=== PATIENT | female | born 1950 | race Caucasian/White ===

== ENCOUNTER 2017-01-23 09:44 | Day surgery (SDC) | payer BC, OTHER ==
[~2017-01-23] VITALS: Ht 151.1 cm; Wt 52.6 kg
[~2017-01-23 09:44] MED LIST: ALEVE220 MG PO; ASMANEX HFA13 GM IH; DOXYCYCLINE HY100 MG PO; HYDROXYZINE HCL25 MG PO; KLONOPIN0.5 M1 PO; LEVOTHYROXINE50 MCG PO; PAXIL30 MG PO; PHENERGAN-CODE120 ML PO; PROAIR HFA8.5 GM IH; TRAZODONE HCL100 MG PO
[2017-01-23 11:02] VITALS: BP 129/65
[2017-01-23] MEDS ORDERED: IBUPROFEN800 MG PO (14:36)
[2017-01-23] MEDS ORDERED: PERCOCET 5/31 TABLET PO (14:36)
[2017-01-23 14:55] VITALS: BP 118/58
[2017-01-23 16:12] VITALS: BP 116/47
[2017-01-23 18:35] VITALS: BP 138/70
[2017-01-25 16:56] LABS: CHOLINESTERASE 2631 IU/L (2673-6592)
== END 2017-01-23 18:30 | disposition home or self-care (01) ==
LOC: SDC
PROVIDERS: Obstetrics & Gynecology
PROC: 0TSD0ZZ Reposition Urethra, Open Approach (ICD-10-PCS; principal; 2017-01-23)
DX: N39.3 Stress incontinence (female) (male) (principal); N39.46 Mixed incontinence; J44.9 Chronic obstructive pulmonary disease, unspecified; E03.9 Hypothyroidism, unspecified; Z88.2 Allergy status to sulfonamides; Z82.3 Family history of stroke; Z82.49 Family history of ischemic heart disease and other diseases of the circulatory system; Z82.5 Family history of asthma and other chronic lower respiratory diseases; Z80.52 Family history of malignant neoplasm of bladder; Z86.73 Personal history of transient ischemic attack (TIA), and cerebral infarction without residual deficits
CPT/HCPCS: 82480 90; 93005; C1771; J0690; J1100; J1885; J2250; J2405; J3010